=== PATIENT | female | born 1935 ===

== ENCOUNTER → 2020-10-01 | Outpatient (CLI) | payer MEDICARE ==
[2020-10-01 13:44] LABS: Cholesterol 268 mg/dL (50-200); HDL Cholesterol 54 mg/dL (>39); LDL/HDL RATIO 3.4; Low Density Lipoprotein Chol 183 mg/dL (0-110); Triglycerides 155 mg/dL (30-160); Very Low Density Lipoprot Chol 31 mg/dL (6-32)
== END | disposition home or self-care (01) ==
LOC: PLD 10:49 → LAB SHORT 10:49 → LAB 10:49
PROVIDERS: Family Medicine
DX: E78.5 Hyperlipidemia, unspecified (principal)
CPT/HCPCS: 80061

== ENCOUNTER → 2021-05-13 | Outpatient (CLI) | payer MEDICARE ==
[2021-05-13 19:09] LABS: BASOPHILS ABSOLUTE AUTO 0.02 K/mm3 (0.00-0.23); BASOPHILS PERCENT AUTO 0 % (0-2); EOSINOPHILS ABSOLUTE AUTO 0.22 K/mm3 (0.00-0.68); EOSINOPHILS PERCENT AUTO 3 % (0-6); Hematocrit 40.2 % (33.0-51.0); Hemoglobin 13.2 g/dL (11.5-16.0); IMMATURE GRAN ABSOLUTE AUTO 0.02 K/mm3 (0.00-0.10); IMMATURE GRAN PERCENT AUTO 0 % (0-1); LYMPHOCYTES ABSOLUTE AUTO 1.52 K/mm3 (0.84-5.20); LYMPHOCYTES PERCENT AUTO 22 % (21-46); MONOCYTES ABSOLUTE AUTO 0.76 K/mm3 (0.16-1.47); MONOCYTES PERCENT AUTO 11 % (4-13); Mean Corpuscular HGB 32.4 pg (26.0-34.0); Mean Corpuscular HGB Conc 32.8 g/dL (31.5-36.5); Mean Corpuscular Volume 99 fL (80-100); Mean Platelet Volume 11.3 fL (9.1-12.4); NEUTROPHILS ABSOLUTE AUTO 4.28 K/mm3 (1.96-9.15); NEUTROPHILS PERCENT AUTO 63 % (41-73); Platelet Count 296 K/mm3 (150-400); RDW Coefficient Variation 12.9 % (11.7-14.2); RDW Standard Deviation 46.5 fL (35.1-46.3); Red Blood Cell Count 4.07 M/mm3 (3.80-5.20); White Blood Cell Count 6.82 K/mm3 (4.00-11.30)
[2021-05-13 19:41] LABS: Alanine Aminotransfer (ALT/SGP 16 U/L (12-78); Albumin, Blood 3.1 g/dL (3.4-5.0); Albumin/Globulin Ratio 0.8 (0.8-1.8); Alk Phos 70 U/L (50-136); Anion Gap 7 mmol/L (6-16); Aspartate Aminotrans (AST/SGOT 14 U/L (12-37); Bilirubin, Total 0.6 mg/dL (0.1-1.0); Blood Urea Nitrogen 18 mg/dL (8-24); Bun/Creatinine Ratio 19.2 (12.0-20.0); CHOL/HDL RATIO 2.8; CO2, Blood 26 mmol/L (21-32); Calcium, Blood 9.2 mg/dL (8.5-10.1); Chloride, Blood 109 mmol/L (98-108); Cholesterol 132 mg/dL (50-200); Creatinine, Blood 0.94 mg/dL (0.40-1.00); Glomerular Filtration Rate 57 (60-); Glucose, Blood 87 mg/dL (70-99); HDL Cholesterol 48 mg/dL (>39); LDL/HDL RATIO 1.4; Low Density Lipoprotein Chol 65 mg/dL (0-110); Sodium, Blood 142 mmol/L (136-145); Total Protein, Blood 7.1 g/dL (6.4-8.2); Triglycerides 95 mg/dL (30-160); Very Low Density Lipoprot Chol 19 mg/dL (6-32)
== END | disposition home or self-care (01) ==
LOC: LAB 15:36 → LAB SHORT 15:36
PROVIDERS: Family Medicine
DX: E78.5 Hyperlipidemia, unspecified (principal); I10 Essential (primary) hypertension
CPT/HCPCS: 36415; 80053; 80061; 85025

== ENCOUNTER 2023-06-28 18:15 | Inpatient (IN) | payer MEDICARE ==
[~2023-06-28] VITALS: Ht 167.6 cm; Wt 53.8 kg
[2023-06-28 19:12] LABS: BASOPHILS ABSOLUTE AUTO 0.02 K/mm3 (0.00-0.23); BASOPHILS PERCENT AUTO 0 % (0-2); EOSINOPHILS PERCENT AUTO 0 % (0-6); Hematocrit 41.4 % (33.0-51.0); Hemoglobin 14.1 g/dL (11.5-16.0); IMMATURE GRAN ABSOLUTE AUTO 0.03 K/mm3 (0.00-0.10); IMMATURE GRAN PERCENT AUTO 0 % (0-1); LYMPHOCYTES ABSOLUTE AUTO 0.47 K/mm3 (0.84-5.20); LYMPHOCYTES PERCENT AUTO 6 % (21-46); MONOCYTES ABSOLUTE AUTO 0.87 K/mm3 (0.16-1.47); MONOCYTES PERCENT AUTO 11 % (4-13); Mean Corpuscular HGB 32.5 pg (26.0-34.0); Mean Corpuscular HGB Conc 34.1 g/dL (31.5-36.5); Mean Corpuscular Volume 95 fL (80-100); Mean Platelet Volume 11.4 fL (9.1-12.4); NEUTROPHILS ABSOLUTE AUTO 6.69 K/mm3 (1.96-9.15); NEUTROPHILS PERCENT AUTO 83 % (41-73); Platelet Count 187 K/mm3 (150-400); RDW Coefficient Variation 12.7 % (11.7-14.2); RDW Standard Deviation 44.7 fL (35.1-46.3); Red Blood Cell Count 4.34 M/mm3 (3.80-5.20); White Blood Cell Count 8.08 K/mm3 (4.00-11.30)
[2023-06-28 19:35] LABS: Source, Urine Straight Cath
[2023-06-28 19:42] LABS: Base Excess Venous -0.2 mmol/L; Bicarbonate Venous 24.8 mmol/L (24.0-30.0); PCO2 Venous 34.1 mmHg (38-42); pH Blood Venous 7.45 (7.34-7.37)
[2023-06-28 19:42] LABS: Albumin, Blood 3.4 g/dL (3.4-5.0); Albumin/Globulin Ratio 0.9 (0.8-1.8); Bilirubin, Total 1.1 mg/dL (0.1-1.0); Bun/Creatinine Ratio 17.1 (12.0-20.0); Calcium, Blood 9.2 mg/dL (8.5-10.1); Creatinine, Blood 1.11 mg/dL (0.40-1.00); Globulin, Blood 3.7 g/dL (2.2-4.0); Magnesium, Blood 2.2 mg/dL (1.6-2.4); Potassium, Blood 4.1 mmol/L (3.5-5.5); Thyroid Stimulating Hormone 0.799 uIU/mL (0.360-4.800); Total Protein, Blood 7.1 g/dL (6.4-8.2)
[2023-06-28 19:43] LABS: Bilirubin, Urine Neg (Neg); Blood, Urine 2+ (Neg); Color, Urine Yellow (P-Yellow); Glucose Qualitative, Urine Neg (Neg); Ketones, Urine 3+ (Neg); Leukocyte Esterase, Urine Neg (Neg); Nitrite, Urine Neg (Neg); Protein, Urine 2+ (Neg); Specific Gravity, Urine 1.025 (1.003-1.022); Urobilinogen, Urine NORM (Normal)
[2023-06-28 19:51] LABS: Appearance, Urine Hazy (Clear); Bacteria Few /hpf; White Blood Cells, Urine 0-2 /hpf (0-5)
[2023-06-28 19:52] LABS: Squamous Epithelial Cells Few /hpf (Few); Transitional Epithelial Cells Rare /hpf (0-Rare)
[2023-06-28 20:17] LABS: Influenza A, PCR NEGATIVE (NEGATIVE); Influenza B, PCR NEGATIVE (NEGATIVE); Resp Syncytial Virus, PCR NEGATIVE (NEGATIVE)
[2023-06-28 20:18] LABS: SARS-Cov-2 (COVID-19) PCR, MMC POSITIVE (NEGATIVE)
[2023-06-29 01:20] VITALS: BP 184/84
[2023-06-29 04:56] LABS: BASOPHILS ABSOLUTE AUTO 0.02 K/mm3 (0.00-0.23); BASOPHILS PERCENT AUTO 0 % (0-2); EOSINOPHILS PERCENT AUTO 0 % (0-6); Hematocrit 42.5 % (33.0-51.0); Hemoglobin 14.2 g/dL (11.5-16.0); IMMATURE GRAN ABSOLUTE AUTO 0.03 K/mm3 (0.00-0.10); IMMATURE GRAN PERCENT AUTO 0 % (0-1); LYMPHOCYTES ABSOLUTE AUTO 0.58 K/mm3 (0.84-5.20); LYMPHOCYTES PERCENT AUTO 8 % (21-46); MONOCYTES ABSOLUTE AUTO 1.08 K/mm3 (0.16-1.47); MONOCYTES PERCENT AUTO 15 % (4-13); Mean Corpuscular HGB 32.4 pg (26.0-34.0); Mean Corpuscular HGB Conc 33.4 g/dL (31.5-36.5); Mean Corpuscular Volume 97 fL (80-100); Mean Platelet Volume 11.2 fL (9.1-12.4); NEUTROPHILS ABSOLUTE AUTO 5.51 K/mm3 (1.96-9.15); NEUTROPHILS PERCENT AUTO 76 % (41-73); Platelet Count 160 K/mm3 (150-400); RDW Coefficient Variation 12.8 % (11.7-14.2); RDW Standard Deviation 45.8 fL (35.1-46.3); Red Blood Cell Count 4.38 M/mm3 (3.80-5.20); White Blood Cell Count 7.22 K/mm3 (4.00-11.30)
[2023-06-29 04:59] VITALS: BP 128/60
[2023-06-29 05:18] LABS: Bun/Creatinine Ratio 22.1 (12.0-20.0); Potassium, Blood 3.8 mmol/L (3.5-5.5)
--- NOTE | 2023-06-29 07:40 | NUR ---
SHIFT SUMMARY UNABLE TO GET IN CONTACT WITH PATIENTS SON. UNABLE TO VERIFY ALLERGIES. PT NONVERBAL. PRN HYDRALAZINE GIVEN FOR SBP>180 WITH POSITIVE EFFECT.
[2023-06-29 07:45] VITALS: BP 143/70
[2023-06-29] MEDS ORDERED: POTA10T PO (09:59)
[2023-06-29] MEDS ORDERED: Crestor20 MG PO (10:00)
--- NOTE | 2023-06-29 11:49 | NUR ---
Initial Visit Palliative Care Consult for Advanced Care Planning/Goals of Care and Medically Fragile. 88 year old female admitted to the hospital for Toxic Metabolic Encephalopathy. Pt's medical history and comorbidities include: Parkinson's Disease and Dementia. Spoke with ST Cannon prior to visit and discussed case. Pt and family may benefit from Palliative Care Consult. This PC RN accampanied by PC RN Dominique. Pt resting in bed with her eyes closed upon arrival. Pt appears comfortable with no S/S of distress at this time. Pt's son Stephane at bedside. Engaged in therapeutic listening as Stephane reports events leading up to this hospital stay. Pt more lethargic and mostly sleeping over the last several days. Pt also has limited PO intake. This change led Stephane to bring Pt to the hospital. Stephane reports at baseline Pt requires assistance with transfers, ambulates with walker and standbye assisst, and is intermittently incontinent. Pt generally has good appetite and is able to feed herself. Pt no longer able to have a meaningful conversation. Dr Lovell in to discuss results and plan of care. Dr Lovell recommending hospice as Pt is at end stage disease process. Dr Lovell discussed code status wishes with Stephane. Stephane reports Pt is DNR. After Dr Lovell leaves these PC RNs remained behind to answer questions and offer support. Son Stephane reports being familiar with hospice services as his father was on hospice. Brief and gentle education on disease process including trajectory. Offered therapeutic listening and answered questions. Stephane expresses concerns regarding his ability to care for Pt and has plans to contact [employer] to apply for medicaid for Pt. Discussed hospice agencies to choose from. Stephane will consider options. No other questions or concerns reported at this time. Placed DNR order in [facility] per V/O from Dr Lovell Scores below are based off Pt's baseline PPS 40% ADLs 5/6 FAST 7C Pt appears appropriate for hospice and family to consider hospice agency choices. Plan: Supportive visits as needed. No plan to start comfort measures only while in the hospital as Pt is not imminent and does not appear to be in distress. Palliative Care will remain available
--- NOTE | 2023-06-29 15:10 | NUR ---
SHIFT SUMMARY MS JOHNSON HAS BEEN MOSTLY NON-VERBAL BUT ABLE TO ANSWER QUESTIONS WITH A "YES". EYES OPEN, SMILES. TURNED FROM SIDE TO SIDE WITH 2 PERSON ASSISTANCE. INCONTINENT OF URINE. NO STOOL. CONTRACTIONS TO ARMS AND HER NECK. SHE REMAINS NPO AFTER UNABLE TO PARTICIPATE IN SWALLOW EVAL. IVF AT 100CC/HR. HER SON VISITED THIS MORNING AND TALKED WITH [employer] STUD WORKER, PALIATIVE CARE RN AND DR RODRIGUEZ. STATUS CHANGED TO DNR AND DNR BRACELET APPLIED. SHE DOES NOT EXHIBIT ANY SIGNS OF DISCOMFORT. ORAL CARE DONE WITH SXN X 2 SO FAR THIS SHIFT. BED LOW, CLL LIGHT IN REACH, BED ALARM ON.
[2023-06-29 16:15] VITALS: BP 148/95
[2023-06-29 20:08] VITALS: BP 138/71
[2023-06-30 05:27] VITALS: BP 151/72
--- NOTE | 2023-06-30 06:16 | NUR ---
SHIFT SUMMARY NO EVENTS OVERNIGHT.
[2023-06-30 07:54] VITALS: BP 139/67
--- NOTE | 2023-06-30 10:24 | NUR ---
Pt resting in bed with eyes closed upon arrival. Pt wakes to gentle verbal stimuli. Pt appears weak and frail. Pt also appears pleasantly confused. Offered brief supportive visit. Spoke with Primary RN, Hospitalist, and discussed case. Plan for ST to evaluate. Palliative Care will remain available
[2023-06-30 15:45] VITALS: BP 155/70
--- NOTE | 2023-06-30 17:14 | NUR ---
DAYSHIFT SUMMARY Patient alert & arouses to voice and touch. Patient responds during repositioning and cares, but did not verbally communicate with RN. REGISTERED DENTAL HYGIENIST eval & treat, patient upgraded to puree diet. IV NS infusing continously. Patients appears appears contracted, she lays curled up on he left sided. Repositioned Q2H. Incontinent of B/B. Will continue plan of care, awaiting discharge planning.
[2023-06-30 20:40] VITALS: BP 153/95
[2023-07-01 03:20] VITALS: BP 149/84
--- NOTE | 2023-07-01 06:54 | NUR ---
SHIFT SUMMARY PT LAYING IN BED DURING THE NIGHT, PT ON ENHANCED PRECAUTIONS, PT TURNED Q2H, ENCOURAGED FLUIDS EACH TURNING D/T NILSA COLORED URINE, PUREWICK IN PLACE, IV INFUSING WITHOUT PROBLEMS, REPORT THAT NS AT 50ML- ORDER IS FOR 100ML - INCREASED - WILL PASS ON TO DAYSHIFT TO RESEARCH- BED LOW POSITION, CALL LIGHT WITHIN REACH, BED ALARM IN PLACE
[2023-07-01 07:53] VITALS: BP 153/83
--- NOTE | 2023-07-01 08:53 | NUR ---
Pt laying in bed on her side with eyes closed, has tremor to right arm, alert to self, lungs are dim t/o, on r/a, no cough noted, hrr, no edema noted, ppp+2, cap refill <3sec, vs stable, afebrile, iv site to left wrist, site is clear and patent, infusing ns at 100mls/hr, btx4 hypoactive, incont, briefs in place and purwick in place, urine is yellow, all ext are contracted, diff to feed as her neck is to one side, call light in reach.
[2023-07-01 15:47] VITALS: BP 171/86
--- NOTE | 2023-07-01 19:10 | NUR ---
pt had an uneventful day, no acute changes this shift. has been turned every two hrs, and kept clean and dry, eating small amounts at meals, more awake this afternoon, call light in reach.
[2023-07-01 22:31] VITALS: BP 166/84
--- NOTE | 2023-07-02 04:26 | NUR ---
SHIFT SUMMARY PATIENT HAS HAD AN UNEVENTFUL NIGHT. PATIENT HAS BEEN RESTING COMFORTABLY. PATIENT TURNED FREQUENTLY PATIENT IS IMMOBILE. PATIENT HAS NOT COMPLAINED OF PAIN, NAUSEA, SOB OR VOMITTING. PATIENT IS STILL ON ROOM AIR, SATTING WELL. BED IN LOCKED AND LOWEST POSITION. IV INFUSING ORDERED.
[2023-07-02 05:35] VITALS: BP 146/78
--- NOTE | 2023-07-02 07:49 | NUR ---
Pt laying in bed with eyes closed, pt is nonverbal, lungs are dim t/o, on r/a, no cough noted, hrr, no edema noted, pp faint, cap refill <3 sec, vs stable, afebrile, iv site to lfa site is clear and patent, btx4 hypoactive, incont briefs and purwick in place, skin has mepilex to back, c/d/i, arms are contracted, is total care, and a feeder, patito, call light in reach, playing soft music.
[2023-07-02 07:57] VITALS: BP 156/76
[2023-07-02 15:55] VITALS: BP 142/90
--- NOTE | 2023-07-02 18:01 | NUR ---
pt has been kept clean and dry, turned throughout the day, and fed, visitors came in and fed her some jellow as well, no acute changes this shift. call light in reach.
[2023-07-02 19:37] VITALS: BP 175/98
[2023-07-03 04:14] VITALS: BP 185/94
--- NOTE | 2023-07-03 04:14 | NUR ---
SHIFT SUMMARY PATIENT IS ALERT AND ORIENTED TO SELF ONLY. PATIENT HAS HAD NO ACUTE EVENTS THIS SHIFT. VITAL SIGNS REVIEWED. PATIENT HAS BEEN SLEEPING COMFORTABLY MOST OF SHIFT. PATIENT HAS BEEN TOTAL CARE AND IS AWAITING PLACEMENT. PATIENT HAS BEEN TURNED FREQUENTLY. IV FLUIDS INFUSING ORDERED. PATIENT HAS ENDORSED NO PAIN, NAUSEA, SOB OR VOMITTING THIS SHIFT. BED IN LOCKED AND LOWEST POSITION. WILL MONITOR UNTIL SHIFT CHANGE.
[2023-07-03 08:14] VITALS: BP 178/103
[2023-07-03 15:59] VITALS: BP 138/90
--- NOTE | 2023-07-03 17:26 | NUR ---
SHIFT SUMMARY PT RESPONDS TO VERBAL STIMULI, ORIENTED TO SELF ONLY, DEPENDENT ON FULL CARE. PT APPEARED TO SLEEP T/O SHIFT W/ C/O PAIN AND OR N/V. PITTING EDEMA NOTED IN L HAND DURING SHIFT, COBAN REMOVED FROM IV SITE, MODERATE EDEMA IMPROVED AT END OF SHIFT. CALL LIGHT IS WITHIN REACH AND BED IS LOCKED IN THE LOWEST POSITION. PLAN FOR DISCHARGE WED AFTER REMARKETING MANAGER ASSESSMENT FROM AGING AND DISABILITY. SEE CARE COORDINATION NOTES.
[2023-07-03 19:27] VITALS: BP 147/85
[2023-07-04 03:23] VITALS: BP 152/85
--- NOTE | 2023-07-04 03:52 | NUR ---
SHIFT SUMMARY PATIENT HAS HAD NO ACUTE EVENTS THIS SHIFT. VITAL SIGNS REVIEWED. PATIENT HAS NOT COMPLAINED OF PAIN, NAUSEA, SOB OR VOMITTING THIS SHIFT. PATIENT REMAINS NONVERBAL. IV FLUIDS INFUSED ORDERED. TURNED FREQUENTLY. BED IN LOCKED AND LOWEST POSITION. CALL LIGHT IN PLACE. WILL MONITOR UNTIL SHIFT CHANGE.
--- NOTE | 2023-07-04 08:00 | NUR ---
pt resting in bed with eyes closed, non verbal, hands and arms are contracted, total care, bedrest, incont, with briefs and purwick in place, lungs are dim t/o, on r/a, resp even and unlabored, no cough noted, hrr, no edema noted, ppp faint, cap refill <3 sec, vs stable, afebrile, piv site is clear and patent, btx4, abd flat soft nontender, voids without diff, skin c/w/d, unable to move ext, patito, call light in reach.
[2023-07-04 08:59] VITALS: BP 144/73
[2023-07-04 14:49] VITALS: BP 170/75
--- NOTE | 2023-07-04 18:03 | NUR ---
pt has been cleaned kept dry, purwick changed, did not want dinner, no acute changes this shift. call light in reach.
[2023-07-04 19:29] VITALS: BP 185/82
--- NOTE | 2023-07-05 04:54 | NUR ---
SHIFT SUMMARY NOC PT A/O X 1. PLEASANTLY CONFUSED AND COOPERATIVE WITH CARE. PT WAS UNABLE TO SWALLOW BEDTIME RX AND THEY WERE HELD. PT WAS ABLE TO TAKE PO WATER IN SIPPY CUP SLOWLY ONE CUP AT A TIME, BUT WAS POCKETING PILLS. PT HAS BEEN REPOSITIONED Q2H PER ORDERS AND HAS PUREWICK IN PLACE FOR INCONTINENCE. PT HAD ELEVATED BP DURING SHIFT CHANGE VS. PT CONTINOUS NS WAS STOPPED DURING DAY SHIFT DUE TO ANOTHER ELEVATED BP, WILL PASS ALONG TO DAY SHIFT. PT IS CURRENTLY AWAITING EITHER PLACEMENT IN A FACILITY FOR HOSPICE OR GOING HOME WITH FAMILY ON HOSPICE, WITH DECISION STILL UNDECIDED. PT IS CURRENTLY RESTING WITH BED IN LOWEST POSITION, AND CALL LIGHT WITHIN REACH.
[2023-07-05 07:31] VITALS: BP 168/99
[2023-07-05 16:05] VITALS: BP 156/87
--- NOTE | 2023-07-05 19:43 | NUR ---
SUMMARY- PT ALERT TO SELF. VASALATES BETWEEN BEING RESPONSIVE AT TIMES AND VERBAL WITH EYE CONTACT AND A FEW WORDS. AT TIMES VERY DIFFICULT TO AROUSE AND NOT RESPONSIVE. DEPENDANT IN CARE, TURNED ROUTINELY. BEDBOUND CURRENTLY. TOLERATED LUNCH PUREES AND ATE BEING FED. THIN LIQ THROUGH A STRAW, SMALL A FEW SIPS AT A TIME. NOT AWAKE FOR BREAKFAST OR DINNER. LUNGS CLEAR, DIM. BP ELEVATED BUT DID NOT REQUIRE PRN HYDRALAZINE. PLAN FOR PT TO DC HOME WITH HOME HEALTH/PALLIATIVE. REPORTED TO NOC OSCAR NINO
[2023-07-05 19:46] VITALS: BP 158/82
[2023-07-06 04:23] VITALS: BP 177/86
--- NOTE | 2023-07-06 05:59 | NUR ---
SHIFT SUMMERY PT RESTED WELL MOST OF THE NIGHT PT OCASIONALY OPENING EYES BUT NOT TALKING. PT TURNED AND CAHNGED , PT DOSE HAVE A PURE WICK ON. PT THIS AM WAS TALKING. WARM BLANKETS APPLYED. ROOM VERY COLD. CALL LIGHT IN REACH. BED ALARM ON.
[2023-07-06 07:40] VITALS: BP 173/86
--- NOTE | 2023-07-06 14:45 | NUR ---
PT DISCHARGED HOME WITH HOME HEALTH AT [address] [place] [address] TO HOME. IV DC'D, ATTENDS CHANGED, MINI BED BATH- BELONGINGS SENT WITH PATIENT
== END 2023-07-06 11:23 | disposition home health service (06) | DRG 177 ==
LOC: ER 18:15 → MEDS 18:16
PROVIDERS: Student in an Organized Health Care Education/Training Program; ADMIT Internal Medicine
PROC: 8E0ZXY6 Isolation (ICD-10-PCS; principal; 2023-06-29)
DX: U07.1 COVID-19 (principal); G92.8 Other toxic encephalopathy; N17.9 Acute kidney failure, unspecified; E87.3 Alkalosis; Z66 Do not resuscitate; Z51.5 Encounter for palliative care; N18.2 Chronic kidney disease, stage 2 (mild); G20.C Parkinsonism, unspecified; F02.80 Dementia in other diseases classified elsewhere, unspecified severity, without behavioral disturbance, psychotic disturbance, mood disturbance, and anxiety; R62.7 Adult failure to thrive; Z90.89 Acquired absence of other organs; Z98.890 Other specified postprocedural states; Z68.25 Body mass index [BMI] 25.0-25.9, adult
CPT/HCPCS: 0241U; 36415; 70450; 71045; 80048; 80053; 81001; 82803; 83735; 84443; 84484; 85025; 92526; 92610; 93005; 93010; 99285-25; A9270; J0360; J1650; J7030